=== PATIENT | male | born 1960 | race Caucasian/White ===

== ENCOUNTER → 2020-04-19 15:16 | Outpatient (BNVA) | payer OTHER, SELFPAY | PROVIDERS: Family Provider Family Medicine; PCP Family Medicine; Visit Provider Urology | DX: Z12.5 Encounter for screening for malignant neoplasm of prostate (principal); N41.1 Chronic prostatitis | CPT/HCPCS: 81001 ==

== ENCOUNTER → 2020-10-05 15:45 | Outpatient (BNVA) | payer OTHER, SELFPAY | PROVIDERS: Family Provider Family Medicine; PCP Family Medicine; Visit Provider Urology | DX: R97.20 Elevated prostate specific antigen [PSA] (principal); N41.1 Chronic prostatitis; N52.9 Male erectile dysfunction, unspecified | CPT/HCPCS: 81003; 84153 ==

== ENCOUNTER → 2020-12-06 14:44 | Outpatient (BNVA) | payer OTHER, SELFPAY | PROVIDERS: Family Provider Family Medicine; PCP Family Medicine; Visit Provider Specialist | DX: R20.0 Anesthesia of skin (principal); R20.2 Paresthesia of skin; M79.661 Pain in right lower leg; M79.662 Pain in left lower leg | CPT/HCPCS: 95909 ==

== ENCOUNTER 2021-01-09 17:04 | Outpatient (CLI) | payer OTHER, SELFPAY ==
--- NOTE | 2021-01-09 | MR_ITS ---
WS: [id number] MRI LUMBAR SPINE NONCONTRAST TECHNIQUE: Sagittal T1, T2 and STIR imaging. Axial T1 and T2 imaging. CLINICAL INFORMATION: NEUROPATHY OF FOOT COMPARISON: None. FINDINGS: Mild lumbar curve. No acute compression. Mild annular bulging L2-L3 and L3-L4. L1-L2: No significant disc bulging. Mild left and no significant right foraminal narrowing. Mild face t arthropathy. L2-L3: Mild annular bulging with slight effacement of the ventral thecal sac. Mild facet arthropathy. Mild left and no significant right foraminal narrowing. L3-L4: Mild annular bulging with slight narrowing of the right subarticular recess. Tiny bilateral fo raminal protrusions with mild bilateral foraminal narrowing. Mild facet arthropathy. L4-L5: Mild annular bulging with slight effacement of ventral thecal sac. Mild facet arthropathy. Mil d left greater than right foraminal narrowing. L5-S1: Mild annular bulging with slight effacement of the ventral thecal sac. Mild facet arthropathy. Spinal canal and foramen are patent. Visualized pelvic bony structures: Normal. Paravertebral soft tissues: Normal. MR/MR lumbar spine wo con* [id number] IMPRESSION: 1. Mild lumbar curve. No acute compression. No high-grade central canal stenos is. 2. Mild annular bulging L4-5 with slight effacement of ventral thecal sac. [place] ular bulging eccentric to the left with mild left foraminal narrowing and conta ct of the exiting left L4 nerve root. Recommend correlation for left L4 nerve r oot symptoms. 3. Tiny bilateral foraminal protrusions L3-4 with mild bilateral foraminal isael rowing. 4. Mild facet arthropathy L3-4 and L4-L5.
== END 2021-01-09 17:05 | disposition home or self-care (01) ==
LOC: RADSHAW 17:13
PROVIDERS: PCP Family Medicine; Visit Provider Family Medicine
DX: G57.90 Unspecified mononeuropathy of unspecified lower limb (principal); M47.816 Spondylosis without myelopathy or radiculopathy, lumbar region; M51.26 Other intervertebral disc displacement, lumbar region
CPT/HCPCS: 72148

== ENCOUNTER → 2022-01-09 15:50 | Outpatient (BNVA) | payer OTHER, SELFPAY | PROVIDERS: PCP Family Medicine; Visit Provider Nurse Practitioner Family | DX: R97.20 Elevated prostate specific antigen [PSA] (principal) | CPT/HCPCS: 81003; 84153 ==

== ENCOUNTER 2023-01-10 16:40 | Outpatient (CLI) | payer OTHER, SELFPAY ==
[2023-01-10 17:42] LABS: Prostate Specific AG Urology 4.47 ng/mL (0-4)
== END 2023-01-10 16:41 | disposition home or self-care (01) ==
LOC: LAB 16:46
PROVIDERS: PCP Family Medicine; Visit Provider Urology
DX: R97.20 Elevated prostate specific antigen [PSA] (principal)
CPT/HCPCS: 36415; 84153

== ENCOUNTER → 2023-01-14 16:21 | Outpatient (BNVA) | payer OTHER, SELFPAY | PROVIDERS: PCP Family Medicine; Visit Provider Urology | DX: R97.20 Elevated prostate specific antigen [PSA] (principal); N41.1 Chronic prostatitis; N52.9 Male erectile dysfunction, unspecified | CPT/HCPCS: 81003 ==